=== PATIENT | female | born 1985 | race Caucasian/White ===

== ENCOUNTER 2024-04-30 18:42 | Emergency (ER) | payer MEDICAID, SELFPAY ==
[2024-04-30 18:43] VITALS: BMI 27.4
[2024-04-30 19:10] VITALS: BP 118/77; PULSE 86; RESP 18; TEMP 37.4; O2SAT 97
--- NOTE | 2024-04-30 19:33 | EDNOTE_ITS ---
<Statement entered by Negin Flood MD - 05/01/24 22:05> As co-signing physician, I was present and available for consult prn. I concur with the plan and care as documented by the midlevel provider. ED Skin Abcess FB-RME/HPI General Chief complaint: Skin/Abscess/Foreign Body Stated complaint: POSS RASH TO ABD AND BACK [id number] PAIN AND ITCHY Time Seen by Provider: 04/30/24 19:18 Source: patient Arrival date/time: 04/30/24 18:42 39-year-old female presents emergency department complaining of rash to upper back and left lateral abdomen that started 1 week ago. Mode of arrival: ambulatory Limitations: no limitations Related Data Home Medications ?Medication ?Instructions ?Recorded ?Confirmed conjugated estrogens 0.625 mg 1 tab-cap PO DAILY 07/02/17 03/12/23 tablet (Premarin) hydrochlorothiazide 12.5 mg tablet 12.5 mg PO QDAY 07/02/17 03/12/23 sertraline 100 mg tablet (Zoloft) 100 mg PO BID 07/02/17 03/12/23 albuterol sulfate 2.5 mg/0.5 mL mg inhalation QID 03/21/18 03/12/23 solution for nebulization albuterol sulfate 90 mcg/actuation 2 puff Q4H PRN Shortness Of Breath 03/21/18 03/12/23 aerosol inhaler (Ventolin HFA) amlodipine 2.5 mg tablet 2.5 mg PO HS 03/21/18 03/12/23 medroxyprogesterone 2.5 mg tablet 2.5 mg PO QDAY 03/21/18 03/12/23 promethazine 6.25 mg/5 mL oral 1 tsp PO Q4H PRN Nausea 03/21/18 03/12/23 syrup ranitidine HCl 150 mg tablet 03/21/18 03/12/23 (Zantac) risperidone 1 mg tablet (Risperdal) 1 mg PO QDAY 03/21/18 03/12/23 estradiol 0.01% (0.1 mg/gram) 2 g vaginal DIRECTED 11/10/22 03/12/23 vaginal cream (Estrace) oxybutynin chloride 10 mg 10 mg PO QDAY 06/13/23 10/13/23 tablet,extended release 24 hr Previous Rx's ?Medication ?Instructions ?Recorded cyclobenzaprine 10 mg tablet 10 mg PO TID #14 tabs 03/22/18 ondansetron 4 mg disintegrating 4 mg PO QID PRN nausea and 03/22/18 tablet (Zofran ODT) vomiting #14 tabs ondansetron HCl 8 mg tablet 8 mg PO TID PRN nausea and 04/10/18 (Zofran) vomiting #30 tabs acetaminophen 650 mg 650 mg PO Q8H PRN pain #20 tabs 07/02/18 tablet,extended release omeprazole 20 mg capsule,delayed 20 mg PO QDAY #30 caps 12/20/18 release psyllium husk 3 gram/5.4 gram oral 1 tbsp PO QDAY #284 grams 10/25/20 powder hydrocodone 5 mg-acetaminophen 325 1 tab PO BID PRN pain #10 tabs 04/30/24 mg tablet valacyclovir 1 gram tablet 1,000 mg PO TID 7 days #21 tabs 04/30/24 Allergies Allergy/AdvReac Type Severity Reaction Status Date / Time baclofen Allergy Severe Swelling Verified 04/30/24 18:46 of Lip/Tongue/Throat Fish Containing Products Allergy Severe Swelling Verified 04/30/24 18:46 of Lip/Tongue/Throat ibuprofen Allergy Severe HIVES, Verified 04/30/24 18:46 THROAT SWELLS ketorolac Allergy Severe HIVES Verified 04/30/24 18:46 mushroom Allergy Severe Hives Verified 04/30/24 18:46 naproxen Allergy Severe ITCHING, Verified 04/30/24 18:46 HIVES nitrofurantoin Allergy Severe Swelling Verified 04/30/24 18:46 [From Macrobid] of Lip/Tongue/Throat Penicillins Allergy Severe HIVES, Verified 04/30/24 18:46 THROAT SWELLING shellfish derived Allergy Severe THROAT Verified 04/30/24 18:46 SWELLING Review of Systems Review of Systems Systems Reviewed: All systems reviewed, normal except as documented Constitutional Constitutional: Reports system reviewed and no additional complaints, except as documented, Denies body ache(s), Denies chills and Denies fever(s) Eyes Eyes: Reports system reviewed and no additional complaints, except as documented and Denies change in vision ENT Ears, Nose, Mouth, and Throat: Reports system reviewed and no additional complaints, except as documented, Denies disequilibrium, Denies dizziness, Denies sore throat and Denies vertigo Cardiovascular Cardiovascular: Reports system reviewed and no additional complaints, except as documented, Denies chest pain and Denies dyspnea Respiratory Respiratory: Reports system reviewed and no additional complaints, except as documented, Denies chest congestion, Denies cough and Denies dyspnea Gastrointestinal Gastrointestinal: Reports system reviewed and no additional complaints, except as documented, Denies abdominal pain, Denies nausea and Denies vomiting Musculoskeletal Musculoskeletal: Reports system reviewed and no additional complaints, except as documented, Denies abnormal gait and Denies arthralgias Integumentary/Breasts Skin/Breast: Reports system reviewed and no additional complaints, except as documented, Denies erythema, Reports rash and Denies wounds Neurologic Neurologic: Reports system reviewed and no additional complaints, except as documented, Denies abnormal gait, Denies disequilibrium, Denies dizziness and Denies vertigo Past Medical History Past Medical History NEUROLOGIC: Positive Seizures CARDIAC: Positive Cardiac Disorders, Hypercholesterolemia, Valvular Heart Disease and Hypertension; Negative Congestive Heart Failure RESPIRATORY: Positive Asthma, Bronchitis, Pneumonia and Sleep Apnea; Negative Chronic Obstructive Pulmonary Disease (COPD) GASTROINTESTINAL: Positive Gastrointestinal Disorders, Gall Bladder Disease, Ulcer and Hiatal Hernia GENITOURINARY: Negative Renal Disease REPRODUCTIVE: Positive Endometriosis MUSCULOSKELETAL: Positive Arthritis ENDOCRINE: Negative Diabetes Mellitus Type 1 or Diabetes Mellitus Type 2 HEMATOLOGIC: Negative Sickle Cell Disease OTHER HISTORY: Negative Blood Transfusions Family History FAMILY HISTORY: Positive Family Respiratory Disorders, Family Cardiac Disorders and Family Cancer Surgical History SURGICAL: Positive Hysterectomy and Tubal Ligation Social History SMOKING STATUS: Current every day smoker ED Exam General Limitations: Present no limitations General appearance: Present alert and in no apparent distress Head Head exam: Present atraumatic Eye Eye exam: Present normal appearance, PERRL and EOMI ENT ENT exam: Present normal exam, normal oropharynx and mucous membranes moist Neck Neck exam: Present normal inspection, full ROM and trachea midline Chest Chest inspection: Present normal inspection and symmetric chest wall rise Respiratory Respiratory exam: Present normal lung sounds bilaterally Cardiovascular Cardiovascular exam: Present regular rate, normal rhythm and normal heart sounds Abdominal Exam Abdominal exam: Present soft and normal bowel sounds Extremities Exam Extremities exam: Present normal inspection and full ROM Back Exam Back exam: Present normal inspection and full ROM Neurological Exam Neurological exam: Present alert, oriented X3 and CN II-XII intact Psychiatric Psychiatric exam: Present normal affect and normal mood Skin Skin exam: Present warm, dry, intact and rash Expanded Skin Exam Type of lesion: Present rash Distribution: Present back and abdomen Description: Present vesicular and blisters Body image: 2 1. Vesicular rash 2. Vesicular rash Course Quality Measures none Vital Signs Vital signs: Vital Signs Temperature 99.3 F 04/30/24 19:10 Pulse Rate 86 04/30/24 19:10 Respiratory Rate 18 04/30/24 19:10 Blood Pressure 118/77 04/30/24 19:10 Pulse Oximetry (%) 97 04/30/24 19:10 Oxygen Delivery Method Room Air 04/30/24 19:10 97% room air within normal limits Skin / Abscess / Foreign Body MDM Narrative MDM Narrative:: 39-year-old female presents emergency department complaining of rash to upper back and left lateral abdomen that started 1 week ago. Rash consistent with shingles as it coincides with rash localized to same dermatome that involves upper back and left lateral abdomen. Patient appears nontoxic and hemodynamically stable. Patient denies any other complaints. Patient discharged on antiviral and pain medication instructed to follow-up with primary care provider and return to emergency department for any worsening symptoms or as needed. Patient data External records reviewed:: [facility] previous records Clinical information provided by:: patient Social determinants that could affect healthcare access:: none Patient has the following chronic illnesses:: See chart How is presenting disease/condition affected by chronic disease/condition?: u neffected by Evaluation data The following diagnostics were reviewed and interpreted by me:: other (specify) (Not applicable) Lab and/or radiology exams considered but not ordered:: Not applicable Interpretation Summary: Not applicable Medications / Prescriptions Medications or Prescriptions considered but not ordered:: Not applicable Medication administrations:: Not applicable Consultations Consultation(s) initiated? (list below): No Diagnosis Skin/Abscess Differential Diagnosis: abscess of skin or subcutaneous tissue, viral exanthem, urticaria, herpes zoster, allergic reaction to drug, cellulitis, eczema, impetigo and contact dermatitis Most likely diagnosis given after review of the tests above:: Shingles Admission Indicated Admission indicated?: not indicated Admission Request Was there a request for admission?: No Disposition Plan Disposition Plan: Discharge Discharge Attestation Discharge Attestation: The patient and all family members were given an opportunity to ask questions and understood the discharge instructions. Discharge instructions specifically effects, indications for sooner follow up or return to the emergency department, and the expected course of current diagnosis. Patient condition: Stable Discharge Plan Plan Patient Disposition: HOME (Self Care) Disposition Comment: Stable Prescriptions/Referrals Prescriptions/Med Rec: New valacyclovir 1 gram tablet 1,000 mg PO TID 7 Days Qty: 21 0RF hydrocodone-acetaminophen 5-325 mg tablet 1 tab PO BID MDD 2 tabs PRN (Reason: pain) Qty: 10 0RF No Action oxybutynin chloride 10 mg tablet extended release 24hr 10 mg PO QDAY estradiol [Estrace] 0.01 % (0.1 mg/gram) cream 2 g vaginal DIRECTED Patient Comments: twice a week conjugated estrogens [Premarin] 0.625 mg Tablet 1 tab-cap PO DAILY sertraline [Zoloft] 100 mg Tablet 100 mg PO BID hydrochlorothiazide 12.5 mg Tablet 12.5 mg PO QDAY medroxyprogesterone 2.5 mg Tablet 2.5 mg PO QDAY promethazine 6.25 mg/5 mL Syrup 1 tsp PO Q4H PRN (Reason: Nausea) amlodipine 2.5 mg Tablet 2.5 mg PO HS ranitidine HCl [Zantac] 150 mg Tablet Patient Comments: pt states can not remember dose albuterol sulfate [Ventolin HFA] 90 mcg/actuation Hfa Aerosol Inhaler 2 puff Q4H PRN (Reason: Shortness Of Breath) risperidone [Risperdal] 1 mg Tablet 1 mg PO QDAY albuterol sulfate 2.5 mg/0.5 mL Solution For Nebulization INHALATION QID Patient Comments: pt doesnot rememeber the dose cyclobenzaprine 10 mg tablet 10 mg PO TID Qty: 14 0RF ondansetron [Zofran ODT] 4 mg tablet,disintegrating 4 mg PO QID PRN (Reason: nausea and vomiting) Qty: 14 0RF omeprazole 20 mg capsule,delayed release(DR/EC) 20 mg PO QDAY Qty: 30 0RF Rx Instructions: swallow whole; do not crush, chew, dissolve, cut, break psyllium husk 3 gram/5.4 gram powder 1 tbsp PO QDAY Qty: 284 0RF Rx Instructions: mix into at least 8 oz of water or juice before administering ondansetron HCl [Zofran] 8 mg tablet 8 mg PO TID PRN (Reason: nausea and vomiting) Qty: 30 0RF acetaminophen 650 mg tablet extended release 650 mg PO Q8H PRN (Reason: pain) Qty: 20 0RF Problem List Clinical Impression: Shingles Patient/Caregiver Discharge Instructions Education Materials: ED Shingles (Herpes Zoster) Additional Instructions: Take medication as prescribed. Follow-up with primary care provider in 2 to 3 days. Return to emergency department for any worsening symptoms or as needed. Print Language: Swedish Stand Alone Forms: [employer]ann[employer] Award Info., Patient Portal Info Letter PA/VETERINARY PARASITOLOGIST Supervising Physician PA/VETERINARY PARASITOLOGIST Supervising Physician: Dr. Flood
== END 2024-04-30 19:54 | disposition home or self-care (01) ==
PROVIDERS: Emergency Provider Emergency Medicine
DX: B02.9 Zoster without complications (principal)
CPT/HCPCS: 99281